=== PATIENT | female | born 1945 | race Two or more races ===

== ENCOUNTER 2017-10-30 10:39 | Outpatient (CLI) | payer OTHER ==
[~2017-10-30 10:39] MED LIST: ACETASOL HC EAR10 ML; KLONOPIN1 MG/TAB PO; LAMICTAL25 MG PO; PAXIL20 MG PO
== END 2017-10-30 10:46 | disposition home or self-care (01) ==
LOC: RAD 501 10:39
DX: M25.551 Pain in right hip (principal); M25.561 Pain in right knee

== ENCOUNTER 2017-11-16 14:12 | Outpatient (CLI) | payer OTHER | END 2017-11-16 14:16 | disposition home or self-care (01) | LOC: NUCLEAR 14:12 | DX: M85.80 Other specified disorders of bone density and structure, unspecified site (principal); M81.0 Age-related osteoporosis without current pathological fracture ==

== ENCOUNTER 2018-03-11 10:46 | Outpatient (CLI) | payer OTHER | END 2018-03-11 11:37 | disposition home or self-care (01) | LOC: MAMO-SONO 10:46 | DX: Z12.31 Encounter for screening mammogram for malignant neoplasm of breast (principal); Z87.898 Personal history of other specified conditions; N61.0 Mastitis without abscess ==

== ENCOUNTER 2018-06-30 09:39 | Emergency (ER) | payer OTHER ==
[~2018-06-30] VITALS: Ht 152.4 cm; Wt 72.6 kg
[2018-06-30] MEDS ORDERED: MOBIC7.5 MG (10:04)
[2018-06-30] MEDS ORDERED: ROBAXIN500 MG (10:04)
[2018-06-30] MEDS ORDERED: COSOPT PF EYE1 EACH (10:04)
[2018-06-30] MEDS ORDERED: LYRICA200 MG (10:04)
== END 2018-06-30 13:03 | disposition home or self-care (01) ==
LOC: ER 09:39
DX: S43.491A Other sprain of right shoulder joint, initial encounter (principal); X50.0XXA Overexertion from strenuous movement or load, initial encounter; Y93.B9 Activity, other involving muscle strengthening exercises; Y92.89 Other specified places as the place of occurrence of the external cause; Y99.8 Other external cause status

== ENCOUNTER 2019-03-25 09:16 | Outpatient (CLI) | payer OTHER ==
[~2019-03-25 09:16] MED LIST changes: +COSOPT PF EYE1 EACH; +LYRICA200 MG; +MOBIC7.5 MG; +ROBAXIN500 MG
== END 2019-03-25 10:04 | disposition home or self-care (01) ==
LOC: MAMO-SONO 09:16
DX: Z12.31 Encounter for screening mammogram for malignant neoplasm of breast (principal); Z87.898 Personal history of other specified conditions; N60.11 Diffuse cystic mastopathy of right breast; N60.12 Diffuse cystic mastopathy of left breast

== ENCOUNTER → 2019-07-23 | Outpatient (CLI) | payer OTHER | END | disposition home or self-care (01) | LOC: RAD 13:03 | DX: M16.11 Unilateral primary osteoarthritis, right hip (principal) ==

== ENCOUNTER 2019-10-25 15:41 | Emergency (ER) | payer OTHER ==
[~2019-10-25] VITALS: Ht 152.4 cm; Wt 72.6 kg
== END 2019-10-25 20:08 | disposition home or self-care (01) ==
LOC: ER 15:41
DX: M65.251 Calcific tendinitis, right thigh (principal)

== ENCOUNTER → 2020-08-23 | Outpatient (CLI) | payer OTHER | END | disposition home or self-care (01) | LOC: MAMO-SONO 09:47 | PROVIDERS: ATTEND Specialist | DX: Z12.31 Encounter for screening mammogram for malignant neoplasm of breast (principal); N60.02 Solitary cyst of left breast; N60.01 Solitary cyst of right breast; N60.11 Diffuse cystic mastopathy of right breast; N60.12 Diffuse cystic mastopathy of left breast ==

== ENCOUNTER → 2020-10-25 | Outpatient (CLI) | payer OTHER | END | disposition home or self-care (01) | LOC: NUCLEAR 09:00 | PROVIDERS: ATTEND Specialist | DX: M81.0 Age-related osteoporosis without current pathological fracture (principal) ==

== ENCOUNTER → 2021-08-24 | Outpatient (CLI) | payer OTHER | END | disposition home or self-care (01) | LOC: MAMO-SONO 10:15 | PROVIDERS: ATTEND Internal Medicine | DX: R92.1 Mammographic calcification found on diagnostic imaging of breast (principal); Z12.31 Encounter for screening mammogram for malignant neoplasm of breast ==

== ENCOUNTER 2021-12-14 09:37 | Emergency (ER) | payer OTHER ==
[~2021-12-14] VITALS: Ht 152.4 cm; Wt 72.6 kg
[2021-12-14] MEDS ORDERED: ADULT LOW DOSE81 M1 (09:59)
[2021-12-14] MEDS ORDERED: ATORVASTATIN CA20 MG PO (09:59)
[2021-12-14] MEDS ORDERED: PEPCID AC20 MG (09:59)
[2021-12-14] MEDS ORDERED: LYRICA300 MG PO (10:00)
[2021-12-14] MEDS ORDERED: BRILINTA90 MG PO (10:00)
[2021-12-14] MEDS ORDERED: COZAAR25 MG PO (10:00)
[2021-12-14] MEDS ORDERED: TOPROL XL25 M1 (10:00)
== END 2021-12-14 11:29 | disposition home or self-care (01) ==
LOC: ER 09:37
DX: R60.0 Localized edema (principal); I10 Essential (primary) hypertension

== ENCOUNTER 2023-01-09 11:29 | Outpatient (CLI) | payer OTHER ==
[~2023-01-09 11:29] MED LIST changes: +ADULT LOW DOSE81 M1; +ATORVASTATIN CA20 MG PO; +BRILINTA90 MG PO; +COZAAR25 MG PO; +LYRICA300 MG PO; +PEPCID AC20 MG; +TOPROL XL25 M1
== END 2023-01-09 11:32 | disposition home or self-care (01) ==
LOC: NUCLEAR 11:29
PROVIDERS: ATTEND Internal Medicine
DX: M81.0 Age-related osteoporosis without current pathological fracture (principal)

== ENCOUNTER 2023-01-09 13:11 | Outpatient (CLI) | payer OTHER | END 2023-01-09 13:22 | disposition home or self-care (01) | LOC: MAMO-SONO 13:11 | PROVIDERS: ATTEND Internal Medicine | DX: Z12.31 Encounter for screening mammogram for malignant neoplasm of breast (principal) ==

== ENCOUNTER → 2023-07-09 | Emergency (ER) | payer OTHER ==
[~2023-07-09] VITALS: Ht 162.6 cm; Wt 81.6 kg
== END | disposition left against medical advice (07) ==
LOC: ER 16:57
DX: Z53.21 Procedure and treatment not carried out due to patient leaving prior to being seen by health care provider (principal)

== ENCOUNTER 2023-08-10 10:19 | Outpatient (CLI) | payer OTHER | END 2023-08-10 13:34 | disposition home or self-care (01) | LOC: SONOGRAMA 10:19 | PROVIDERS: ATTEND Internal Medicine | DX: I70.0 Atherosclerosis of aorta (principal); R31.9 Hematuria, unspecified ==

== ENCOUNTER 2023-08-30 08:21 | Outpatient (CLI) | payer OTHER | END 2023-08-30 08:32 | disposition home or self-care (01) | LOC: TOM 08:21 | PROVIDERS: ATTEND Internal Medicine | DX: K80.50 Calculus of bile duct without cholangitis or cholecystitis without obstruction (principal); M51.87 Other intervertebral disc disorders, lumbosacral region | CPT/HCPCS: 72148; 74181 ==

== ENCOUNTER 2024-05-28 11:34 | Outpatient (CLI) | payer OTHER | END 2024-05-29 16:36 | disposition home or self-care (01) | LOC: MAMO-SONO 11:34 | PROVIDERS: ATTEND Internal Medicine | DX: R92.1 Mammographic calcification found on diagnostic imaging of breast (principal); Z12.31 Encounter for screening mammogram for malignant neoplasm of breast ==

== ENCOUNTER 2024-06-06 12:23 | Outpatient (CLI) | payer OTHER | END 2024-06-06 12:27 | disposition home or self-care (01) | LOC: RAD 12:23 | PROVIDERS: ATTEND Internal Medicine Rheumatology | DX: M19.071 Primary osteoarthritis, right ankle and foot (principal) ==

== ENCOUNTER 2024-08-16 08:58 | Emergency (ER) | payer OTHER ==
[~2024-08-16] VITALS: Ht 152.4 cm; Wt 68.0 kg
[2024-08-16] MEDS ORDERED: DIPHENHYDRAMINE HCL 50 MG/ML VIAL 1ML IM STA (12:23)
[2024-08-16] MEDS ORDERED: BETAMETHASONE V15 GM TOP (12:33)
[2024-08-16] MEDS ORDERED: AVIDOXY100 MG PO (12:33)
== END 2024-08-16 12:45 | disposition home or self-care (01) ==
LOC: ER 09:00
DX: L98.8 Other specified disorders of the skin and subcutaneous tissue (principal); Z95.1 Presence of aortocoronary bypass graft
CPT/HCPCS: 96372; 99282; J1200

== ENCOUNTER 2025-02-05 07:29 | Outpatient (CLI) | payer OTHER ==
[~2025-02-05 07:29] MED LIST changes: +AVIDOXY100 MG PO; +BETAMETHASONE V15 GM TOP
== END 2025-02-05 07:34 | disposition home or self-care (01) ==
LOC: RAD 07:29
DX: J20.8 Acute bronchitis due to other specified organisms (principal)

== ENCOUNTER 2025-06-18 08:03 | Outpatient (CLI) | payer OTHER | END 2025-06-18 08:10 | disposition home or self-care (01) | LOC: RAD 08:03 | DX: I10 Essential (primary) hypertension (principal) ==